=== PATIENT | female | born 1970 | race Two or more races ===

== ENCOUNTER 2018-09-03 05:25 | Day surgery (SDC) | payer OTHER ==
[~2018-09-03 05:25] MED LIST: ANESTHESIA TRAY IN PYXIS 1 EA TRAY MC ONE
[2018-09-03] MEDS ORDERED: BUPIVACAINE 0.5 % PF 150 MG/30 ML VIAL ONE (07:14)
[2018-09-03] MEDS ORDERED: HYDROMORPHONE 1 MG/1 ML DISP.SYRIN ONE (08:22)
[2018-09-03] MEDS ORDERED: ONDANSETRON HCL/PF 4 MG/2 ML VIAL ONE (08:31)
[2018-09-03] MEDS ORDERED: KETOROLAC TROMETHAMINE INJ 30 MG/ML VIAL ONE (08:36)
[2018-09-03] MEDS ORDERED: oxyCODONE/APAP (5/325 MG) 1 UDTAB TABLET ONE (09:20)
== END 2018-09-03 09:45 | disposition home or self-care (01) ==
LOC: DS 05:25
PROVIDERS: ATTEND Specialist
DX: G56.01 Carpal tunnel syndrome, right upper limb (principal); K21.9 Gastro-esophageal reflux disease without esophagitis; Z88.5 Allergy status to narcotic agent; Z79.899 Other long term (current) drug therapy
CPT/HCPCS: 64721; 84703; A4565; A6253; A6402; J0690; J1100; J1170; J1885; J2405 ×2; J2704; J3490 ×2